=== PATIENT | male | born 1970 | race Caucasian/White ===

== ENCOUNTER 2016-10-26 07:21 | Emergency (ER) | payer MEDICAID ==
[~2016-10-26] VITALS: Ht 170.2 cm; Wt 65.0 kg
[2016-10-26 07:22] VITALS: BP 133/85; PULSE 83; RESP 16; TEMP 98.6; O2SAT 100
[2016-10-26] MEDS ORDERED: KETOROLAC TROMETHAMINE 60 MG/2 ML (IM) VIAL IM ONE (08:00)
--- NOTE | 2016-10-26 08:07 | PD ---
HPI Chief Complaint: Musculoskeletal Complaint Time Seen by Provider: 07:46 Travel History International Travel<30 days: No Contact w/Intl Traveler<30days: No Traveled to known affect area: No History of Present Illness HPI 46-year-old male presents to the emergency Department with complaint of left hip /groin pain since this morning. He says he has had right knee pain for the last few months and has been compensating by walking more on his left leg. This morning when he was walking down stairs he heard something "pop" in his left hip with sudden onset of pain. Denies paresthesias, loss of sensation to the affected extremity. Reports decreased range of motion and strength secondary to pain. Denies fever, vomiting. Has not taken any medications or tried any treatments to alleviate his symptoms. No known allergies. Has not medical complaints. No other modifying factors or associated signs and symptoms. PFSH Past Medical History Medical History: Denies Significant Hx Tetanus Vaccination: < 5 Years Social History Alcohol Use: No Tobacco Use: Yes Substance Use: No Allergies-Medications (Allergen,Severity, Reaction): Coded Allergies: No Known Allergies (Unverified , 10/26/16) Reported Meds & Prescriptions Reported Meds & Active Scripts Active Robaxin (Methocarbamol) 500 Mg Tab 500 Mg PO QID PRN Ibuprofen 800 Mg Tab 800 Mg PO Q6HR PRN Review of Systems Except as stated in HPI: all other systems reviewed are Neg Physical Exam Narrative GENERAL: Well-nourished, well-developed male patient, in no acute distress; afebrile, nontoxic-appearing SKIN: Warm and dry. HEAD: Atraumatic. Normocephalic. EYES: Pupils equal and round. No scleral icterus. No injection or drainage. ENT: Mucosa pink and moist. Airway patent. NECK: Trachea midline. CARDIOVASCULAR: Regular rate. RESPIRATORY: No accessory muscle use. GASTROINTESTINAL: Flat. MUSCULOSKELETAL: Left hip with passive full range of motion; patient unable to perform active range of motion secondary to pain; without erythema, edema, or ecchymosis; no tenderness on abduction; no tenderness elicited on palpation of the left hip; pain is reproducible to the left groin area; no inguinal hernia palpated or visualized laying down or standing up; no obvious deformity; no leg length discrepancy. Left lower extremity is supple and non-tense with 2+ pedal pulse and sensory intact and without erythema or edema. NEUROLOGICAL: Awake and alert. Oriented 3. No obvious cranial nerve deficits. Motor grossly within normal limits. Normal speech. PSYCHIATRIC: Appropriate mood and affect; insight and judgment normal. Data Data Last Documented VS Vital Signs Date Time Temp Pulse Resp B/P Pulse Ox O2 Delivery O2 Flow Rate FiO2 10/26/16 07:22 98.6 83 16 133/85 100 Room Air Orders Ketorolac Inj (Toradol Inj) (10/26/16 08:00) Hip, Uni(Ap&Lat) W Ap Pelvis (10/26/16 07:46) Crutches (10/26/16 08:07) MDM Medical Decision Making Medical Screen Exam Complete: Yes Emergency Medical Condition: Yes Medical Record Reviewed: Yes Differential Diagnosis Groin strain, stress fracture, musculoskeletal pain, arthritis Narrative Course 46-year-old male physical exam consistent with possible left groin strain. No palpable or visualized area of herniation pulse standing up or lying down. Findings most consistent with musculoskeletal pain. Toradol administered in the ER. Left hip with AP pelvis ordered. 0905: Left hip with AP pelvis x-ray concludes: Examination of the left hip was performed with AP Pelvis. The primary and secondary trabecular pattern of the femoral neck is intact. The hip joint is of normal width without significant sclerosis or bony hypertrophy. The acetabulum is grossly intact. Patient provided crutches for support. Robaxin and ibuprofen prescribed for home. Instructed patient to follow up with primary care provider. Patient verbalizes understanding and agreement with treatment plan. Patient is medically cleared and stable for discharge. Discussed reasons to return to the emergency department. Patient agrees with treatment plan. The patients vital signs are stable and the patient is stable for outpatient follow-up and treatment. Patient discharged home, stable and in no acute distress. Diagnosis Primary Impression: Left groin pain Referrals: Primary Care Physician Patient Instructions: Crutch Instructions (ED), General Instructions, Groin Pain (ED), Hip Pain (ED), Muscle Strain (ED) Departure Forms: Tests/Procedures, Work Release Enter return to work date: Nov 02, 2016 Additional Instructions: Tylenol or ibuprofen as directed and as needed for pain and inflammation Crutches for support Avoid aggravating activity; increase activity as tolerated Follow-up with primary care provider Return to the emergency department immediately with worsening of symptoms Med/Other Pt SpecificInfo: Prescription(s) given Scripts Methocarbamol (Robaxin)500 Mg [id number] Mg PO QID PRN (MUSCLE SPASM) #30 TAB Ref 0 Prov:Isabel Hercules 10/26/16 Ibuprofen 800 Mg [id number] Mg PO Q6HR PRN (PAIN) #30 TAB Ref 0 Prov:Isabel Hercules 10/26/16 Disposition: 01 DISCHARGE HOME Condition: Stable Isabel Hercules Oct 26, 2016 08:06
[2016-10-26] MEDS ORDERED: IBUP800T23 PO (08:09)
[2016-10-26] MEDS ORDERED: ROBA500T PO (08:09)
--- NOTE | 2016-10-26 08:58 | RADRPT ---
EXAM DATE/TIME: 10/26/2016 08:40 [facility] COMPARISON: No previous studies available for comparison. INDICATIONS : Left hip pain radiating into left groin. MEDICAL HISTORY : None. SURGICAL HISTORY : None. ENCOUNTER: Initial ACUITY: 1 day PAIN SCORE: 10/10 LOCATION: Left hip FINDINGS: Examination of the left hip was performed with AP Pelvis. The primary and secondary trabecular patte rn of the femoral neck is intact. The hip joint is of normal width without significant sclerosis or bony hypertrophy. The acetabulum is grossly intact. CONCLUSION: Negative for fracture. Jostin Phillips MD FACR on October 26, 2016 at 8:55 Board Certified Radiologist. This report was verified electronically.
== END 2016-10-26 09:38 | disposition home or self-care (01) ==
LOC: NEPK 07:21
DX: R10.32 Left lower quadrant pain (principal); M25.552 Pain in left hip; Z72.0 Tobacco use
CPT/HCPCS: 73502; 96372; 99284; E0113; J1885